=== PATIENT | male | born 1975 | race Caucasian/White ===

== ENCOUNTER 2017-02-21 12:46 | Emergency (ER) | payer BC, OTHER ==
[~2017-02-21] VITALS: Ht 175.3 cm; Wt 106.0 kg
[~2017-02-21 12:46] MED LIST: BEN50 PO; MED4DP PO
[2017-02-21 12:51] VITALS: Ht 175.3 cm; Wt 106.0 kg
[2017-02-21] MEDS ORDERED: PRED20TA PO (14:43)
[2017-02-21] MEDS ORDERED: RANI150T9 PO (14:43)
[2017-02-21] MEDS ORDERED: BEN25 PO (14:43)
--- NOTE | 2017-02-21 14:58 | ERD ---
ER Documentation Chief Complaint Date/Time DATE: 02/21/17 TIME: 14:54 Chief Complaint CAME IN VIA INTAKE DUE TO RASH ON BOTH ARM HPI 41 yo male comes in with a rash to bilateral arms and trunk that is pruritic since yesterday after eating chicken with a sauce that he has had not before. Patient reports itching and improving slightly with benadryl. No shortness of breath or trouble swallowing with this. He denies any new foods otherwise, no new allergens of any medications, lotions or creams. ROS All systems reviewed and are negative except as per history of present illness. Medications Home Meds Active Scripts Diphenhydramine Hcl* (Benadryl*) 25 Mg Cap, 102 CAP PO Q6, #30 CAP Prov:MICHA MILLER PA-C 02/21/17 Ranitidine Hcl* (Zantac*) 150 Mg Tablet, 150 MG PO BID Y for ITCHING, #10 TAB Prov:MICHA MILLER PA-C 02/21/17 Prednisone* (Prednisone*) 20 Mg Tab, 40 MG PO DAILY for 5 Days, TAB Prov:MICHA MILLER PA-C 02/21/17 Diphenhydramine Hcl* (Benadryl*) 50 Mg Cap, 50 MG PO Q6 Y for ITCHING, #15 CAP Prov:VINEET RUSSO NP 01/16/16 Methylprednisolone* (Medrol* DOSE PACK) 4 Mg/Dose-Pack Tab.ds.pk, 4 MG PO . DIRECTED for 7 Days, PACKET Prov:VINEET RUSSO INDIVIDUAL PENSION CONSULTANT 01/16/16 PMhx/Soc Medical and Surgical Hx: pt denies Medical Hx, pt denies Surgical Hx Hx Alcohol Use: No Hx Substance Use: No Hx Tobacco Use: No Physical Exam Vitals Vital Signs Date Time Temp Pulse Resp B/P Pulse Ox O2 Delivery O2 Flow Rate FiO2 02/21/17 12:51 98.5 101 18 165/110 97 Physical Exam General: Well-developed, well-nourished. The patient appears in no acute distress. HEENT: Head is normocephalic, atraumatic. No scleral icterus. Oropharynx is clear, no angioedema. Neck: Supple. Nontender. Lungs: Clear to auscultation. Normal air movement. Heart: Regular rate and rhythm. S1 and S2 are normal. No murmurs, gallops, or rubs. Abdomen: Nondistended. Extremities: No clubbing or cyanosis. Moving extremities x 4. No weakness. Neurologic: Alert and oriented 3. No focal deficits. Normal speech and gait. Skin: Erythematous rash scattered to the arms, trunk. Rashes blanchable, no vesicles. Procedures/MDM 41-year-old male comes in with an allergic reaction, mild. Patient's allergic symptoms have stabilized while they have been evaluated in the department without evidence of persistent systemic reaction. Patient is healthy and capable of treating and responding to rebound reactions. Patient appropriate for outpatient allergy work up and treatment. Departure Diagnosis: Primary Impression: Allergic reaction Condition: Good Patient Instructions: Allergic Reaction, Other (General) Additional Instructions: Call your primary care doctor TOMORROW for an appointment during the next 1-2 days.See the doctor sooner or return here if your condition worsens before your appointment time. MICHA MILLER PA-C Feb 21, 2017 14:58
== END 2017-02-21 15:00 | disposition home or self-care (01) ==
LOC: FTE 12:46
DX: R21 Rash and other nonspecific skin eruption (principal)
CPT/HCPCS: 99283